=== PATIENT | male | born 1985 | race Caucasian/White ===

== ENCOUNTER 2017-04-21 21:29 | Inpatient (IN) | payer MEDICARE, OTHER ==
[2017-04-21 21:31] VITALS: BP 142/74; PULSE 99; RESP 20; TEMP 96.6; O2SAT 98
[2017-04-22] VITALS (9 sets, daily range): BP systolic 118–141; BP diastolic 58–82; PULSE 91–122; RESP 18–20; TEMP 97.6–101.2; O2SAT 92–99
[2017-04-22] MEDS ORDERED: PIPERACIL-TAZO 4.5 GM PREMIX 100 ML IV STA (00:01)
[2017-04-22] MEDS ORDERED: VANCOMYCIN INJ 1,000 MG in SODIUM CHLOR 0.9% 250 ML INJ 250 ML IV STA (00:01)
--- NOTE | 2017-04-22 00:10 | PD ---
HPI Chief Complaint: Skin Problem Time Seen by Provider: 23:55 Travel History International Travel<30 days: No Contact w/Intl Traveler<30days: No Traveled to known affect area: No History of Present Illness HPI 32 y/o male presents with his father with recurrence of an infection to his groin area that is been over the past couple of days. He states the year ago he had this and Dr. Wills did surgery to the area a year ago. He shows me paperwork that states perianal abscess and cellulitis of perineum. 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, TRAUMATIC BRAIN INJURY ) ?: Not Past Surgical History Other Surgery: Yes (incision and drainage perineum February 2016) Social History Alcohol Use: No Tobacco Use: No Substance Use: No Allergies-Medications (Allergen,Severity, Reaction): Coded Allergies: Iodinated Contrast- Oral and IV Dye (Verified Allergy, Unknown, 04/21/17) Reported Meds & Prescriptions Reported Meds & Active Scripts Active Reported Famotidine 40 Mg Tab 40 Mg PO BID Mupirocin Topical (Mupirocin) 2 % Oint 1 Applic TOPICAL BID Carbamazepine 100 Mg Chew 300 Mg CHEW BID Nystatin Topical (Nystatin) 100,000 unit/gm Cream 1 Applic TOPICAL BID Lactulose Liq (Lactulose) 10 Gm/15 Ml Soln 30 Ml PO HS Alendronate (Alendronate Sodium) 70 Mg Tab 70 Mg PO Q7D Vitamin D2 (Ergocalciferol) 2,000 Unit Tab 50,000 Units PO WEEKLY Senna-Tabs (Sennosides) 8.6 Mg Tab 25.8 Mg PO DAILY Baclofen 10 Mg Tab 10 Mg PO BID Olanzapine 10 Mg Tab 5 Mg PO BID Review of Systems ROS Limitations: Poor Historian (given traumatic brain injury) Physical Exam Exam Limitations: Poor Historian (traumatic brain injury) Narrative GENERAL: no apparent distress patient. SKIN: Warm and dry. HEAD: atraumatic. EYES: No injection or drainage. ENT: No nasal drainage noted. NECK: Supple, trachea midline. CARDIOVASCULAR: Regular rate and rhythm RESPIRATORY: no increased effort. No accessory muscle use. GASTROINTESTINAL: Abdomen soft, nondistended. GENITOURINARY: Testes descended bilaterally without evidence of rotation. to prior surgical site on right perianal area there is approximately 2 cm area of induration with surrounding erythema and warmth. NEUROLOGICAL: Contractures noted to arms, history traumatic brain injury limits Data Data Last Documented VS Vital Signs Date Time Temp Pulse Resp B/P (MAP) Pulse Ox O2 Delivery O2 Flow Rate FiO2 04/22/17 00:11 105 20 04/21/17 21:31 96.6 142/74 (96) 98 Room Air Orders Orders Sepsis Workup Initiated (04/22/17 ) Complete Blood Count With Diff (04/22/17 00:01) Comprehensive Metabolic Panel (04/22/17 00:01) Lactic Acid Sepsis Protocol (04/22/17 00:01) Magnesium (Mg) (04/22/17 00:01) Urinalysis - C+S If Indicated (04/22/17 00:01) Blood Culture (04/22/17 00:01) Ecg Monitoring (04/22/17 00:01) Iv Access Insert/Monitor (04/22/17 00:01) Oximetry (04/22/17 00:01) Ct Abd/Pel W/O Iv Contrast (04/22/17 00:01) Piperacil-Tazo 4.5 Gm Premix (Zosyn 4.5 (04/22/17 00:01) Vancomycin Inj (Vancomycin Inj) (04/22/17 00:01) Admit Order (Ed Use Only) (04/22/17 04:04) Labs Laboratory Tests Test 04/22/17 00:17 04/22/17 02:55 White Blood Count 18.0 TH/MM3 Red Blood Count 5.37 MIL/MM3 Hemoglobin 16.3 GM/DL Hematocrit 48.4 % Mean Corpuscular Volume 90.1 FL Mean Corpuscular Hemoglobin 30.3 PG Mean Corpuscular Hemoglobin Concent 33.7 % Red Cell Distribution Width 12.9 % Platelet Count 386 TH/MM3 Mean Platelet Volume 8.3 FL Neutrophils (%) (Auto) 73.5 % Lymphocytes (%) (Auto) 14.8 % Monocytes (%) (Auto) 9.7 % Eosinophils (%) (Auto) 1.3 % Basophils (%) (Auto) 0.7 % Neutrophils # (Auto) 13.2 TH/MM3 Lymphocytes # (Auto) 2.7 TH/MM3 Monocytes # (Auto) 1.7 TH/MM3 Eosinophils # (Auto) 0.2 TH/MM3 Basophils # (Auto) 0.1 TH/MM3 CBC Comment DIFF FINAL Differential Comment Blood Urea Nitrogen 10 MG/DL Creatinine 0.72 MG/DL Random Glucose 103 MG/DL Total Protein 8.4 GM/DL Albumin 3.7 GM/DL Calcium Level 9.2 MG/DL Magnesium Level 1.9 MG/DL Alkaline Phosphatase 169 U/L Aspartate Amino Transf (AST/SGOT) 18 U/L Alanine Aminotransferase (ALT/SGPT) 37 U/L Total Bilirubin 0.3 MG/DL Sodium Level 137 MEQ/L Potassium Level 4.3 MEQ/L Chloride Level 101 MEQ/L Carbon Dioxide Level 29.5 MEQ/L Anion Gap 7 MEQ/L Estimat Glomerular Filtration Rate 127 ML/MIN Lactic Acid Level 2.6 mmol/L 1.5 mmol/L [facility] Medical Decision Making Medical Screen Exam Complete: Yes Emergency Medical Condition: Yes Medical Record Reviewed: Yes (past history confirm) Interpretation(s) CBC & BMP Diagram 04/22/17 00:17 Total Protein 8.4 H, Albumin 3.7, Calcium Level 9.2, Magnesium Level 1.9, Alkaline Phosphatase 169 H, Aspartate Amino Transf (AST/SGOT) 18, Alanine Aminotransferase (ALT/SGPT) 37, Total Bilirubin 0.3 Last 24 hours Impressions Abdomen/Pelvis CT 04/22/17 0001 Signed Impressions: Service Date/Time: Saturday, April 22, 2017 00:39 - CONCLUSION: 1. Involving the perineum and left gluteal cleft is a 5 cm soft tissue density which could represent an abscess or inflammatory process. It extends inferiorly from the anus. 2. No other acute finding is identified in the abdomen or pelvis. Gino Jackson MD Differential Diagnosis Abscess, cellulitis, sepsis Narrative Course Will check blood work, CT and reevaluate CT shows abscess and perineum extending inferiorly, will discuss with surgery Father updated and agrees to plan Sepsis Criteria SIRS Criteria (2 or more): Temp > 100.9 or < 96.8, Heart rate over 90, WBC > 71279, < 4000 or > 10% bands Sepsis Criteria (SIRS+source): Infect source susp/known Severe Sepsis (+one): Lactate >2 Criteria Outcome: Meets severe sepsis criteria Physician Communication Physician Communication dr maldonado states to discuss with colorectal dr wagner states to place on his service in observation status Diagnosis Primary Impression: Perianal abscess Additional Impressions: Cellulitis of perineum Sepsis Qualified Codes: A41.9 - Sepsis, unspecified organism Admitting Information Admitting Physician Requests: Observation Yeimy Shaffer MD Apr 22, 2017 00:10
[2017-04-22] MEDS ORDERED: LACT10SO PO (00:38)
[2017-04-22] MEDS ORDERED: ERGO2000 PO (00:38)
[2017-04-22] MEDS ORDERED: CARB100C CHEW (00:38)
[2017-04-22] MEDS ORDERED: ALEN1TAB48 PO (00:38)
[2017-04-22] MEDS ORDERED: FAMO40TA PO (00:38)
[2017-04-22] MEDS ORDERED: NYST15T TOPICAL (00:38)
[2017-04-22] MEDS ORDERED: MUPI2OIN TOPICAL (00:38)
[2017-04-22] MEDS ORDERED: OLAN10TA PO (00:38)
[2017-04-22] MEDS ORDERED: SENN8.6T36 PO (00:38)
[2017-04-22] MEDS ORDERED: BACL10TA PO (00:38)
[2017-04-22 00:48] LABS: AUTOMATED NEUTROPHIL # 13.2 TH/MM3 (1.8-7.7); BASOPHIL # 0.1 TH/MM3 (0-0.2); BASOPHIL % 0.7 % (0.0-2.0); EOSINOPHIL # 0.2 TH/MM3 (0-0.4); EOSINOPHIL % 1.3 % (0.0-4.0); HEMATOCRIT 48.4 % (39.0-51.0); HEMO FLAGS DIFF FINAL; LYMPH % 14.8 % (9.0-44.0); LYMPHOCYTE # 2.7 TH/MM3 (1.0-4.8); MEAN CELL VOLUME 90.1 FL (80.0-100.0); MEAN CORPUSCULAR HEMOGLOBIN 30.3 PG (27.0-34.0); MEAN CORPUSCULAR HGB CONC 33.7 % (32.0-36.0); MONO % 9.7 % (0.0-8.0); NEUT % 73.5 % (16.0-70.0); PLATELET COUNT 386 TH/MM3 (150-450); RED BLOOD COUNT 5.37 MIL/MM3 (4.50-5.90); RED CELL DISTRIBUTION WIDTH 12.9 % (11.6-17.2)
[2017-04-22 01:06] LABS: ALT (GPT) 37 U/L (12-78); ANION GAP 7 MEQ/L (5-15); AST (GOT) 18 U/L (15-37); BICARBONATE 29.5 MEQ/L (21.0-32.0); BLOOD UREA NITROGEN 10 MG/DL (7-18); CHLORIDE 101 MEQ/L (98-107); GLOMERULAR FILTRATION RATE 127 ML/MIN (>89); MAGNESIUM 1.9 MG/DL (1.5-2.5); POTASSIUM 4.3 MEQ/L (3.5-5.1); SODIUM (NA) 137 MEQ/L (136-145)
[2017-04-22 01:07] LABS: ALKALINE PHOSPHATASE 169 U/L (45-117); TOTAL BILIRUBIN ADULT 0.3 MG/DL (0.2-1.0)
--- NOTE | 2017-04-22 01:07 | RADRPT ---
EXAM DATE/TIME: 04/22/2017 00:39 [place] COMPARISON: No previous studies available for comparison. INDICATIONS : Groin pain and inflammation. History of perianal abscess and cellulitis of perineum. ORAL CONTRAST: No oral contrast ingested. RADIATION DOSE: 12.15 CTDIvol (mGy) MEDICAL HISTORY : TIA. 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 ENCOUNTER: Initial ACUITY: 1 day PAIN SCALE: 7/10 LOCATION: buttock TECHNIQUE: Volumetric scanning of the abdomen and pelvis was performed. Using automated exposure control and ad justment of the mA and/or kV according to patient size, radiation dose was kept as low as reasonably achievable to obtain optimal diagnostic quality images. DICOM format image data is available electro nically for review and comparison. FINDINGS: Image quality is degraded secondary to patient arm position and respiratory motion. LOWER LUNGS: There is respiratory motion artifact. Bilateral gynecomastia is present. LIVER: Homogeneous density without lesion. There is no dilation of the biliary tree. No calcified gallston es. SPLEEN: Normal size without lesion. PANCREAS: Within normal limits. KIDNEYS: Normal in size and shape. There is no mass, stone, or hydronephrosis. ADRENAL GLANDS: Within normal limits. VASCULAR: There is no aortic aneurysm. BOWEL/MESENTERY: The stomach, small bowel, and colon demonstrate no acute abnormality. G-tube is present within the s tomach. There is no free intraperitoneal air. No free fluid is present. The patient to being terminat es in the right paracolic gutter in the right upper quadrant. At the perineum extending inferiorly fr om the anus is approximately 5 cm soft tissue density structure. It also abuts the left gluteal cleft . ABDOMINAL WALL: No acute abnormality. RETROPERITONEUM: There is no lymphadenopathy. BLADDER: No wall thickening or mass. REPRODUCTIVE: Within normal limits. INGUINAL: There is no lymphadenopathy or hernia. MUSCULOSKELETAL: There is levoscoliosis of the lumbar spine. CONCLUSION: 1. Involving the perineum and left gluteal cleft is a 5 cm soft tissue density which could represent an abscess or inflammatory process. It extends inferiorly from the anus. 2. No other acute finding is identified in the abdomen or pelvis. Gino Jackson MD on April 22, 2017 at 0:58 Board Certified Radiologist. This report was verified electronically.
[2017-04-22 02:34] LABS: LACTIC ACID GHOST NOT REPORTABLE
[2017-04-22] MEDS ORDERED: ACETAMINOPHEN 325 MG TAB PO PRN (08:00)
--- NOTE | 2017-04-22 10:03 | PD.HP.UP ---
H&P Update Note The Pre-Admit History and Physical Examination regarding the above named patient was reviewed (including, but not limited to, vital signs, heart, lungs, co-morbid conditions), and upon re-examination it is noted that: the patient's condition has not significantly changed since the last examination. Malcolm Galeano MD Apr 22, 2017 10:03
[2017-04-22] MEDS ORDERED: PILL SPLITTER OTHER PRN (10:30)
[2017-04-22] MEDS: SODIUM CHLOR 0.9% 1000 ML INJ 1,000 ML IV SCH (10:45)
[2017-04-22] MEDS ORDERED: NEOSTIGMINE 3 MG/3 ML SYR IV ONE (12:00)
[2017-04-22] MEDS ORDERED: ePHEDrine/NS 25 MG/5 ML SYR IV ONE (12:00)
[2017-04-22] MEDS ORDERED: PHENYLEPH/NS 1000 MCG/10 ML SYR IV ONE (12:00)
[2017-04-22] MEDS ORDERED: ONDANSETRON HCL 4 MG/2 ML VIAL IV PUSH ONE (12:00)
[2017-04-22] MEDS ORDERED: VECURONIUM BROMIDE 20 MG VIAL IV ONE (12:00)
[2017-04-22] MEDS ORDERED: EPINEPHrine HCL (1:1000) 1 MG/ML VIAL IV ONE (12:00)
[2017-04-22] MEDS ORDERED: ceFAZolin INJ 1,000 MG VIAL IV ONE (12:00)
[2017-04-22] MEDS ORDERED: DEXAMETHASONE SOD PHOS 4 MG/ML VIAL IV ONE (12:00)
[2017-04-22] MEDS ORDERED: LABETALOL HCL 100 MG/20 ML VIAL IV ONE (12:00)
[2017-04-22] MEDS ORDERED: PROPOFOL 200 MG/20 ML AMP IV ONE (12:00)
[2017-04-22] MEDS ORDERED: GLYCOPYRROLATE 1 MG/5 ML SYRINGE IV PUSH ONE (12:00)
[2017-04-22] MEDS ORDERED: LIDOCAINE HCL 1% PF 5 ML SYRINGE OTHER ONE (12:00)
[2017-04-22] MEDS ORDERED: SODIUM CHLORIDE 0.9% 20 ML VIAL IV ONE (12:00)
[2017-04-22] MEDS ORDERED: ROCURONIUM INJ 50 MG/5 ML SYRINGE IV PUSH ONE (12:00)
[2017-04-22] MEDS ORDERED: MIDAZOLAM HCL 2 MG/2 ML VIAL IV ONE (12:00)
[2017-04-22] MEDS ORDERED: SODIUM CHLORID 0.9% 500 ML IV PRN (14:15)
[2017-04-22] MEDS ORDERED: METOPROLOL TARTRATE 25 MG TAB PO PRN (14:15)
[2017-04-22] MEDS ORDERED: LACTATED RINGER'S 1000 ML IV PRN (14:15)
[2017-04-22] MEDS ORDERED: SILVER SULFADIAZINE/LIDOCAINE CREAM 60 GM JAR ONE (16:15)
[2017-04-22] MEDS ORDERED: SUGAMMADEX SODIUM 200 MG/2 ML VIAL IV PUSH ONE ×2 (18:16)
--- NOTE | 2017-04-22 18:28 | HHI.FF ---
Face to Face Verification Diagnosis: (1) Perianal abscess Physical Therapy Order: Evaluate and Treat, Improve ambulation, Strength and gait training Home Health Nursing Order: Medical education Signs/symptoms of disease process Medication education-adverse effect Wound care and dressing changes I have seen patient Richi CortezJr nehemias on 04/22/17. My clinical findings support the need for the requested home health care services because: Ltd mobility - disease progression Deconditioned w/ increased weakness Limited ability to care for self Need for psychosocial assistance High risk of falls Infection w/ risk of complications I certify that my clinical findings support that this patient is homebound because: Post-op weakness Unsafe to leave home unassisted Malcolm Galeano MD Apr 22, 2017 18:28
[2017-04-22] MEDS ORDERED: ACETAMINOPHEN 1000 MG/100 ML 100 ML IV PRN (18:30)
[2017-04-22] MEDS ORDERED: oxyCODONE/ACETAMINOPHEN 5 MG/325 MG TAB PO PRN (18:30)
[2017-04-22] MEDS ORDERED: NALOXONE HCL 0.4 MG/ML AMP ONE (18:31)
[2017-04-22] MEDS ORDERED: DO NOT ADM ANY ANTICOAGULANT DRUGS PRN (18:44)
[2017-04-22] MEDS ORDERED: *MEPERIDINE 25 MG INJ VIAL PERIprocedural Use ONLY ONE (18:45)
[2017-04-22] MEDS ORDERED: *morphine SULFATE 8 MG/ML PERIprocedure ONLY ONE (19:00)
[2017-04-22] MEDS: OLANZapine 5 MG TAB PO SCH (21:36)
[2017-04-22] MEDS: BACLOFEN 10 MG TAB PO SCH (21:37)
[2017-04-23] MEDS: SODIUM CHLOR 0.9% 1000 ML INJ 1,000 ML IV SCH ×2 (02:55→16:37)
[2017-04-23 03:04] VITALS: BP 105/56; PULSE 93; RESP 18; TEMP 98.8; O2SAT 94
[2017-04-23 08:58] VITALS: BP 105/53; PULSE 82; RESP 20; TEMP 98.2; O2SAT 93
[2017-04-23] MEDS: BACLOFEN 10 MG TAB PO SCH ×2 (09:29→22:28)
[2017-04-23] MEDS: OLANZapine 5 MG TAB PO SCH ×2 (09:29→22:28)
[2017-04-23 13:13] VITALS: BP 118/59; PULSE 103; RESP 24; TEMP 98.5; O2SAT 93
--- NOTE | 2017-04-23 14:17 | HHI.PR ---
Subjective Remarks POD#1 s/p I & D perineal abscess Seems comfortable Objective Vital Signs Date Time Temp Pulse Resp B/P (MAP) Pulse Ox O2 Delivery O2 Flow Rate FiO2 04/23/17 13:13 98.5 103 24 118/59 (78) 93 04/23/17 08:58 98.2 82 20 105/53 (70) 93 04/23/17 03:04 98.8 93 18 105/56 (72) 94 04/22/17 23:44 97.9 98 18 140/70 (93) 93 04/22/17 21:29 98.9 110 18 141/78 (99) 92 04/22/17 19:30 98.2 88 16 150/69 (96) 97 Nasal Cannula 3 04/22/17 19:15 92 16 159/66 (97) 97 Nasal Cannula 3 04/22/17 19:05 16 04/22/17 19:00 89 16 162/70 (100) 96 Nasal Cannula 3 04/22/17 18:45 99 16 166/76 (106) 98 Nasal Cannula 4 04/22/17 18:42 99.2 117 18 165/90 (115) 95 Nasal Cannula 4 04/22/17 15:43 97.6 98 18 133/82 (99) 95 I/O 04/22/17 04/22/17 04/22/17 04/23/17 04/23/17 04/23/17 07:00 15:00 23:00 07:00 15:00 23:00 Intake Total 350 ml 400 ml Output Total 10 ml Balance 350 ml 390 ml Intake IV Total 350 ml Other 400 ml Output Estimated Blood Loss 10 ml # Voids 0 Result Diagram: 04/22/17 0017 04/22/17 0017 Objective Remarks Wound clean, some fresh blood Assessment and Plan Assessment and Plan Can be discharged as soon as Visiting Nurse can be arranged for dressing changes Laura Pérez MD Apr 23, 2017 14:17
[2017-04-23 16:14] VITALS: BP 105/75; PULSE 86; RESP 18; TEMP 96.3; O2SAT 97
[2017-04-23 23:40] VITALS: BP 118/63; PULSE 82; RESP 22; TEMP 97.7; O2SAT 95
[2017-04-24 01:44] VITALS: BP 114/61; PULSE 80; RESP 20; TEMP 97.8; O2SAT 92
[2017-04-24 05:46] VITALS: BP 121/71; PULSE 97; RESP 20; TEMP 98.1; O2SAT 95
[2017-04-24 08:00] VITALS: BP 116/66; PULSE 102; RESP 20; TEMP 99.5; O2SAT 93
[2017-04-24] MEDS: OLANZapine 5 MG TAB PO SCH ×2 (08:12→21:40)
[2017-04-24] MEDS: BACLOFEN 10 MG TAB PO SCH ×2 (08:12→21:40)
--- NOTE | 2017-04-24 11:27 | HHI.PR ---
Subjective Remarks POD#2 s/p I & D perineal abscess Comfortably sleeping Objective Vital Signs Date Time Temp Pulse Resp B/P (MAP) Pulse Ox O2 Delivery O2 Flow Rate FiO2 04/24/17 08:00 99.5 102 20 116/66 (83) 93 04/24/17 05:46 98.1 97 20 121/71 (88) 95 04/24/17 01:44 97.8 80 20 114/61 (78) 92 04/23/17 23:40 97.7 82 22 118/63 (81) 95 04/23/17 16:14 96.3 86 18 105/75 (85) 97 04/23/17 13:13 98.5 103 24 118/59 (78) 93 I/O 04/23/17 04/23/17 04/23/17 04/24/17 04/24/17 04/24/17 07:00 15:00 23:00 07:00 15:00 23:00 Intake Total 721 ml Output Total 1450 ml Balance -729 ml Intake Oral 0 ml IV Total 721 ml Output Urine Total 1450 ml Result Diagram: 04/22/17 0017 04/22/17 0017 Objective Remarks Dressing change soon Assessment and Plan Assessment and Plan Can be discharged as soon as Visiting Nurse can be arranged for dressing changes Laura Pérez MD Apr 24, 2017 11:26
[2017-04-24] MEDS: SODIUM CHLOR 0.9% 1000 ML INJ 1,000 ML IV SCH (11:53)
[2017-04-24 12:00] VITALS: BP 108/68; PULSE 104; RESP 20; TEMP 98.9; O2SAT 94
[2017-04-24 16:00] VITALS: BP 132/77; PULSE 88; RESP 18; TEMP 97.8; O2SAT 96
--- NOTE | 2017-04-24 16:35 | MP ---
cc: MINH SILVA M.D. DATE OF SURGERY ____ April 2017. PREOPERATIVE DIAGNOSIS Recurrent perirectal / perineal abscess. PROCEDURE Exam under anesthesia with extensive debridement, irrigation and drainage of perineal abscess. POSTOPERATIVE DIAGNOSIS Perineal abscess. SURGEON Dr. Silva. PROCEDURE After adequate general anesthesia, the patient was placed in the left lateral decubitus position. His buttocks taped apart, prepped with Betadine solution and draped in usual sterile fashion. Anal canal was gently dilated and half-shepherd retractor inserted. Examination showed quite a bit of stool in the rectum but normal looking mucosa. The dentate line was unremarkable with no sign of any fistulous connections. Examination revealed a very indurated cellulitic area along the perineal body was scarring from previous drainage procedure. This was opened and large cavity containing purulent fluid was encountered. The skin was opened along the extent of the cavity and digitally explored. It did seem to extend up along the perineal body toward the scrotal area and this cavity was unroofed and irrigated clear. No tissue was seen but quite a bit of a friable granulation tissue. Granulation tissue was all removed and loculations broken up. No connection to the rectum was clearly demonstrated. After irrigation and debridement the cavity was found to be quite clean and hemostasis achieved with electrocautery. Cavity was packed loosely with a large Kerlix dressing, ABD pad externally. The patient tolerated the procedure quite well and was brought to recovery room in stable condition. MD DESEAN Colon/RAVEN /3:55 PM /4:21 PM
--- NOTE | 2017-04-24 16:43 | MH ---
cc: MINH SILVA M.D. DATE OF ADMISSION: 04/23/2017 REASON FOR ADMISSION: Recurrent perineal abscess. HISTORY OF PRESENT ILLNESS: Mr. Aranda is a 32-year-old male who has been treated before at [facility] for infection for an abscess around the rectum / perineal area about a year ago. The patient had been living under the care of his father during the year and only recently noted increasing pain and tenderness around the area along the perineal body. He has noted a fever. He also has been noticing some increasing cellulitis over the skin. The patient's bowel movements have been constipated but pretty normal for the patient. No rectal bleeding has been demonstrated. The patient was sent in for evaluation and possible additional drainage procedure. 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 PAST SURGICAL HISTORY: Incision and drainage of perineal / perirectal abscesses. MEDICATIONS: See the admitting list. ALLERGIES: IV CONTRAST. SOCIAL HISTORY: The patient does not smoke and father says he does not drink any alcohol. FAMILY HISTORY: No family history of colon or rectal cancer. PHYSICAL EXAMINATION: GENERAL: A disabled heavy-set male in no acute distress. HEAD, EYES, EARS, NOSE, THROAT: Remarkable for pink dry membranes, nonicteric sclera. NECK: Neck was quite stiff without adenopathy. CHEST: Relatively shallow in both lung prajapati, symmetrically expanding. HEART: Regular rhythm. ABDOMEN: Abdomen was doughy and soft not distended. Normal bowel sounds. No rebound or guarding or any masses noted. RECTAL: Anal inspection revealed benign canal with some minor hemorrhoids. The perineal body is very swollen and asymmetric with tenderness and some mild cellulitis. No drainage sites noted. Quite indurated. EXTERNAL GENITALIA: Scrotum appears pretty unremarkable. EXTREMITIES: Show no cyanosis or clubbing and maybe 1 to 2+ pedal edema. LABS: Admitting labs were reviewed showing a white count of 18.0, hemoglobin of 16.3. Electrolytes remarkable for BUN of 10, creatinine of 0.72. Liver functions were all normal. IMAGING STUDIES: CT scan was reviewed confirming the very large abscess seen clinically. IMPRESSION: A 32-year-old disabled male with recurrent perineal abscess. It does not appear to have a connection to the rectum but with recurrence, may be suspicious for a fistula. Reviewed at length with the patient's father with his disabilities and suggested that we bring him to the operating room for anesthesia and examination under anesthesia with drainage and debridement of the abscess. If a fistula is demonstrated and fistulotomy or seton placement might be advisable. After assessing the extent and origin of the abscess, intraoperative surgery will be correlated clinically. MD DESEAN Colon/POPPY /4:00 PM /4:16 PM
[2017-04-24 20:45] VITALS: BP 128/93; PULSE 94; RESP 20; TEMP 97.2; O2SAT 96
[2017-04-25 01:33] VITALS: BP 131/69; PULSE 84; RESP 20; TEMP 97.4; O2SAT 96
[2017-04-25] MEDS: SODIUM CHLOR 0.9% 1000 ML INJ 1,000 ML IV SCH (06:03)
[2017-04-25 08:00] VITALS: BP 123/71; PULSE 91; RESP 18; TEMP 97.3; O2SAT 96
[2017-04-25] MEDS: OLANZapine 5 MG TAB PO SCH (09:45)
[2017-04-25] MEDS: BACLOFEN 10 MG TAB PO SCH (09:45)
[2017-04-25 12:00] VITALS: BP 120/75; PULSE 87; RESP 16; TEMP 96.3; O2SAT 96
--- NOTE | 2017-04-25 15:08 | PQ ---
Physician Query Response Document PATIENT: CHINO GARCÍA : 1985 ADMIT DATE: 04/23/2017 5:59 PM DISCH DATE: RESPONDING PROVIDER #: McKinstry Reklaimitter QUERY TEXT: Rule Out Sepsis Clarification Rule out Sepsis is documented in the Medical Record. Please clarify whether: -- Patient has sepsis - Please document confirmed, suspected or probable causative organism - Please document confirmed, suspected or probable localized infection - Please clarify if sepsis is related to a device - Please clarify if sepsis was present on admission -- Sepsis was ruled out (include corresponding diagnosis for patient?s clinical picture and treatment ) -- Patient had sepsis which is resolved -- Other, please specify The patient's Clinical Indicators include: Lactate >2 2.6 WBC 18.0 TEMP: 101.2 PULSE: 122 RECURRENT PERIRECTAL/PERINEAL ABSCESS Apr 22, 2017 00:10 ER DOCUMENTATION A41.9 - Sepsis, unspecified organism TREATMENT INITIATED BLOOD CULTURES FOLLOWED BY IV: ZOSYN IV AND VANCOMYCIN IN ER Query created by: Yamila Henderson on 04/25/2017 2:28 PM RESPONSE TEXT: Pt had wilson-rectal infection, no sepsis Electronically signed by: Malcolm Galeano MD 04/25/2017 3:04 PM
--- NOTE | 2017-04-25 15:51 | HHI.PR ---
Subjective Remarks C/R Surg POD afebrile, VSS princess PO less wound disch Objective - Vital Signs Date Time Temp Pulse Resp B/P (MAP) Pulse Ox O2 Delivery O2 Flow Rate FiO2 04/25/17 12:00 96.3 87 16 120/75 (90) 96 04/22/17 19:30 Nasal Cannula 3 Result Diagram: 04/22/17 0017 04/22/1716 Objective Remarks PE alert cpmfortable Wounds cleaning up A/P Assessment and Plan Imp: cont wound irrigations, OOB per father PO nutrition rto 1 - 2 weeks Malcolm Galeano MD Apr 25, 2017 15:51
== END 2017-04-25 16:08 | disposition home health service (06) | DRG 581 ==
LOC: NEPE 21:29 → NEDA 04-22 04:05 → NEPFCDU 04-22 07:49 → OBSVTOIN 04-23 17:59 → N07A 04-23 18:42
PROVIDERS: ADMIT Colon & Rectal Surgery; ATTEND Colon & Rectal Surgery
PROC: 0J9B0ZZ Drainage of Perineum Subcutaneous Tissue and Fascia, Open Approach (ICD-10-PCS; principal; 2017-04-24)
PROC: 0JDB0ZZ Extraction of Perineum Subcutaneous Tissue and Fascia, Open Approach (ICD-10-PCS; 2017-04-24)
DX: L02.215 Cutaneous abscess of perineum (principal); K59.00 Constipation, unspecified; L03.315 Cellulitis of perineum; Z98.2 Presence of cerebrospinal fluid drainage device
CPT/HCPCS: 74176; 76937; 80053; 83605; 83735; 85025; 87040; 96361; 96365; G0378; J0131; J0171; J0690; J1100; J2175; J2250; J2270; J2310; J2370; J2405; J2543; J2710; J3010; J3370; J7030; J7050

== ENCOUNTER 2018-04-29 19:21 | Observation (INO) ==
[2018-04-29] MEDS ORDERED: Piperacil/Tazo 4.5 GM Premix 4.5 GM/100 ML BAG IV.SIG ONE (20:57)
[2018-04-29] MEDS ORDERED: Vancomycin Inj 1,000 MG in Sodium Chlor 0.9% Inj 250 ML IV.SIG ONE (20:57)
[2018-04-29] MEDS ORDERED: Sod Chloride 0.9% Inj 1,000 ML IV.SIG SCH ×2 (21:00→22:45)
--- NOTE | 2018-04-29 21:35 | ED ---
HPI General Chief complaint: Skin/Abscess/Foreign Body Stated complaint: right leg boil complaint Time Seen by Provider: 04/29/18 20:46 Source: family (Father) Mode of arrival: wheelchair Limitations: other (History of traumatic brain injury, aphasic) History of Present Illness HPI narrative: 33-year-old male with history of traumatic brain injury at the age of 13, SUPERINTENDENT HORTICULTURE shunt, recurrent perineal abscesses, here with his father for evaluation of possible perineal abscess. Patient last had an abscess incised and drained by colorectal surgeon Dr. Galeano here almost exactly 1 year ago. The patient was followed by him for several months afterwards, and continued with wound care at the wound care clinic associated with [facility]. Over the last 2 days the father is noted increasing swelling to the left perineal area as well as apparent discomfort/tenderness. The patient is unable to provide any history, however the father states that he is at his baseline mental status and has been acting and eating appropriately. He has not noticed a fever. No vomiting. Related Data Allergies Allergy/AdvReac Type Severity Reaction Status Date / Time Iodinated Contrast- Oral and Allergy Severe Shortness Verified 04/22/17 15:41 IV Dye of Breath AND ITCHING Review of Systems ROS: all other systems reviewed are negative PMFSH Surgical History Surgical History History of ventriculoperitoneal shunting (Acute) Social History Social History Substance History: No History of Abuse Smoking Status: Never smoker How Often Do You Have a Drink Containing Alcohol: Never Recent Travel in [facility] within the Last 8 Weeks: No Recent Out of Country Travel within the Last 8 Weeks: No Immunization History Tetanus Immunization: Unsure Exam Narrative Exam Narrative: GENERAL: Awake, alert, no apparent distress. SKIN: Focused skin assessment warm/dry. HEAD: Macrocephalus. SUPERINTENDENT HORTICULTURE shunt palpated subcutaneously over the right parietal region with depressible port. EYES: Pupils equal and round. No scleral icterus. No injection or drainage. ENT: No nasal bleeding or discharge. Mucous membranes pink and dry. NECK: Trachea midline. No JVD. No nuchal rigidity. CARDIOVASCULAR: Tachycardia, rate 130, regular. RESPIRATORY: No accessory muscle use. Clear to auscultation. Breath sounds equal bilaterally. GASTROINTESTINAL: Abdomen soft, non-tender, nondistended. PEG tube in left upper quadrant with site clean, dry, intact. : Normal-appearing penis and scrotum. Left perineum/perirectal region with a large area of induration with overlying warmth and erythema with several well- healed scars from previous incision and drainages. No crepitus. No necrosis. MUSCULOSKELETAL: Contractures of bilateral upper and lower extremities. NEUROLOGICAL: Awake and alert. Course Initial Documented Vital Signs Temperature 99.2 F 04/29/18 19:50 Pulse Rate 129 H 04/29/18 19:50 Respiratory Rate 20 04/29/18 19:50 Blood Pressure 145/91 H 04/29/18 19:50 Pulse Oximetry 97 04/29/18 19:50 Last Documented Vital Signs Temperature 99.2 F 04/29/18 19:50 Pulse Rate 129 H 04/29/18 19:50 Respiratory Rate 20 04/29/18 19:50 Blood Pressure 145/91 H 04/29/18 19:50 Pulse Oximetry 97 04/29/18 19:50 Medical Decision Making MDM Narrative Medical decision making narrative: 9:45 PM: I discussed the case with Dr. Villalobos who is covering for colorectal surgeon Dr. Galeano. He will present to the emergency department to evaluate the patient for possible I&D at the bedside. 10:15 PM: Dr. Villalobos is at the bedside. He will perform incision and drainage of the patient's perineal abscess at the bedside. This procedure was concluded at around 10:40 PM, and a significant amount of purulence was expressed. The wound was packed. See his procedure note. CBC is remarkable for leukocytosis of 19,000. Lactic acid is 2.8. Patient was written for IV vancomycin and IV Zosyn. He was also written for 2 L normal saline IV and will be admitted for further treatment and evaluation of sepsis, perineal abscess. Case discussed with hospitalist Dr. Jasso who will admit the patient to the hospitalist service. Medical Screen Exam Complete: Yes Emergency Medical Condition: Yes Differential Diagnosis Differential Diagnosis: Perineal abscess, sepsis, Fourniere's gangrene less likely Lab Data Result diagrams: 04/29/18 21:30 04/29/18 21:30 Lab Results 04/29/18 04/29/18 04/29/18 Range/Units 19:30 21:30 21:30 WBC 19.0 H (4.0-11.0) th/mm3 RBC 5.30 (4.50-5.90) mil/mm3 Hgb 17.2 H (13.0-17.0) gm/dL Hct 47.8 (39.0-51.0) % MCV 90.2 (80.0-100.0) fL MCH 32.5 (27.0-34.0) pg MCHC 36.0 (32.0-36.0) % RDW 13.0 (11.6-17.2) % Plt Count 329 (150-450) th/mm3 MPV 8.5 (7.0-11.0) fL Prelim Diff (Auto) Slide review pending Neut % (Auto) 72.5 H (16.0-70.0) % Lymph % (Auto) 14.6 (9.0-44.0) % [place] % (Auto) 10.5 H (0.0-8.0) % Eos % (Auto) 2.0 (0.0-4.0) % Baso % (Auto) 0.4 (0.0-2.0) % Neut # (Auto) 13.8 H (1.8-7.7) th/mm3 Lymph # (Auto) 2.8 (1.0-4.8) th/mm3 [place] # (Auto) 2.0 H (0.0-0.9) th/mm3 Eos # (Auto) 0.4 (0.0-0.4) th/mm3 Baso # (Auto) 0.1 (0.0-0.2) th/mm3 WBC Differential . Diff Scan Auto diff confirmed Differential Comment . PT 10.0 (9.8-11.6) sec INR 1.0 Ratio APTT 28.7 (23.4-31.7) sec Sodium (136-145) meq/L Potassium (3.5-5.1) meq/L Chloride (98-107) meq/L Carbon Dioxide (21.0-32.0) meq/L Anion Gap (5-15) meq/L BUN (7-18) mg/dL Creatinine (0.60-1.30) mg/dL Estimated GFR (>89) mL/min Random Glucose (74-106) mg/dL Lactic Acid (0.4-2.0) mmol/L Calcium (8.5-10.1) mg/dL Magnesium (1.5-2.5) mg/dL Total Bilirubin (0.2-1.0) mg/dL AST (15-37) U/L ALT (12-78) U/L Alkaline Phosphatase (45-117) U/L Total Protein (6.4-8.2) g/dL Albumin (3.4-5.0) g/dL 04/29/18 04/29/18 Range/Units 21:30 21:30 WBC (4.0-11.0) th/mm3 RBC (4.50-5.90) mil/mm3 Hgb (13.0-17.0) gm/dL Hct (39.0-51.0) % MCV (80.0-100.0) fL MCH (27.0-34.0) pg MCHC (32.0-36.0) % RDW (11.6-17.2) % Plt Count (150-450) th/mm3 MPV (7.0-11.0) fL Prelim Diff (Auto) Neut % (Auto) (16.0-70.0) % Lymph % (Auto) (9.0-44.0) % [place] % (Auto) (0.0-8.0) % Eos % (Auto) (0.0-4.0) % Baso % (Auto) (0.0-2.0) % Neut # (Auto) (1.8-7.7) th/mm3 Lymph # (Auto) (1.0-4.8) th/mm3 [place] # (Auto) (0.0-0.9) th/mm3 Eos # (Auto) (0.0-0.4) th/mm3 Baso # (Auto) (0.0-0.2) th/mm3 WBC Differential Diff Scan Differential Comment PT (9.8-11.6) sec INR Ratio APTT (23.4-31.7) sec Sodium 141 (136-145) meq/L Potassium 4.6 (3.5-5.1) meq/L Chloride 107 (98-107) meq/L Carbon Dioxide 26.6 (21.0-32.0) meq/L Anion Gap 7 (5-15) meq/L BUN 14 (7-18) mg/dL Creatinine 0.87 (0.60-1.30) mg/dL Estimated GFR Greater than 89 (>89) mL/min Random Glucose 93 (74-106) mg/dL Lactic Acid 2.8 H (0.4-2.0) mmol/L Calcium 9.3 (8.5-10.1) mg/dL Magnesium 2.2 (1.5-2.5) mg/dL Total Bilirubin 0.3 (0.2-1.0) mg/dL AST 40 H (15-37) U/L ALT 40 (12-78) U/L Alkaline Phosphatase 180 H (45-117) U/L Total Protein 8.9 H (6.4-8.2) g/dL Albumin 3.8 (3.4-5.0) g/dL Imaging Data Radiologist's impression: Abdomen/Pelvis CT 04/29/18 20:55 CONCLUSION: 1. Induration in the fat at the inferior medial left gluteal/posterior medial upper thigh region without an abscess. 2. G-tube and presumed SUPERINTENDENT HORTICULTURE shunt. 3. 1 to 2 mm nonobstructing right renal stone. 4. Elevation of the right hemidiaphragm Chest X-Ray 04/29/18 20:55 CONCLUSION: Elevation of the right hemidiaphragm. Discharge Plan Discharge Disposition Patient Disposition: ED Admit(ED Internal Use Only) Discharge Condition Condition: Stable Discharge Details Diagnosis: Sepsis, Abscess of perineum Physicians Team ED Provider: Steve Ly Status ED Status: With Doctor
[2018-04-29 21:50] LABS: Baso # (Auto) 0.1 th/mm3 (0.0-0.2); Baso % (Auto) 0.4 % (0.0-2.0); Eos # (Auto) 0.4 th/mm3 (0.0-0.4); Hematocrit 47.8 % (39.0-51.0); Hemoglobin 17.2 gm/dL (13.0-17.0); Lymph # (Auto) 2.8 th/mm3 (1.0-4.8); Lymph % (Auto) 14.6 % (9.0-44.0); Mean Corpuscular Hemoglobin 32.5 pg (27.0-34.0); Mean Corpuscular Volume 90.2 fL (80.0-100.0); Mean Platelet Volume 8.5 fL (7.0-11.0); Mono % (Auto) 10.5 % (0.0-8.0); Neut # (Auto) 13.8 th/mm3 (1.8-7.7); Neut % (Auto) 72.5 % (16.0-70.0); Platelet Count 329 th/mm3 (150-450)
[2018-04-29 22:10] LABS: Activated Partial Thrombo Time 28.7 sec (23.4-31.7)
[2018-04-29] MEDS ORDERED: Lidocaine PF 1% Inj 30 ML Vial ONE (22:11)
--- NOTE | 2018-04-29 22:21 | CT ---
EXAM DATE: 04/29/2018 10:14 PM EST AGE/SEX: 33 years / Male INDICATIONS: Possible recent left perineal abscess. CLINICAL DATA: This is the patient's initial encounter. Patient reports that signs and symptoms have been present for 1 day and indicates a pain score of 10/10. MEDICAL/SURGICAL HISTORY: . Traumatic brain injury. . HOTSHOT SUPERINTENDENT shunt Feeding tube RADIATION DOSE: 20.70 CTDI (mGy) [place] [facility] [place] 04/22/2017. . TECHNIQUE: Multiple contiguous axial images were obtained through the abdomen. Images were obtained using multiple row detector helical technique. Using automated exposure control and adjustment of the mA and/or kV according to patient size, radiation dose was kept as low as reasonably achievable to o btain optimal diagnostic quality images. DICOM format image data is available electronically for rev iew and comparison. FINDINGS: Lower Lungs: There is elevation of the right hemidiaphragm. There is some increased density at the ba ses being worse on the right likely related to atelectasis. Liver: The liver has a homogeneous density without space-occupying lesion. There is no dilation of th e biliary tree. Spleen: Homogeneous density without enlargement. Pancreas: Unremarkable without mass or calcification. Kidneys: Normal in size and shape. No evidence of mass or hydronephrosis. There is a tiny 1 to 2 mm nonobstructing right renal stone seen. Adrenal Glands: Unremarkable. Aorta: The aorta and proximal iliac vessels are grossly unremarkable without aneurysmal dilation. Bowel/Mesentery: There is a G-tube in place. No dilated or thickened bowel is seen. Tubing is seen o ashlee the right chest and right abdomen entering the peritoneal cavity presumably related to a HOTSHOT SUPERINTENDENT shunt . Abdominal Wall: Intact. Retroperitoneum: No evidence of adenopathy in the retrocrural, para-aortic, or deep pelvic regions. Bladder: Contours are smooth. Reproductive Organs: No abnormal masses or calcifications seen. Inguinal: The inguinal region is unremarkable without evidence of adenopathy. Bony Structures: There is a dextrocurvature of the thoracic spine and a levocurvature of the thoraco lumbar region. Other: There is induration in the subcutaneous fat at the inferior medial left gluteal/posterior upp er thigh region. An abscess is not seen. CONCLUSION: 1. Induration in the fat at the inferior medial left gluteal/posterior medial upper thigh region wit hout an abscess. 2. G-tube and presumed HOTSHOT SUPERINTENDENT shunt. 3. 1 to 2 mm nonobstructing right renal stone. 4. Elevation of the right hemidiaphragm Electronically signed by: Gino Jenkins MD 04/29/2018 10:20 PM EST
--- NOTE | 2018-04-29 22:22 | XR ---
EXAM DATE: 04/29/2018 10:20 PM EST AGE/SEX: 33 years / Male INDICATIONS: Fever. Cough. CLINICAL DATA: This is the patient's initial encounter. Patient reports that signs and symptoms have been present for 3 days and indicates a pain score of 0/10. MEDICAL/SURGICAL HISTORY: . TIA. . 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 COMPARISON: No prior exams available for comparison. FINDINGS: There is elevation of the right hemidiaphragm. The heart size is normal. The lungs appear grossly tim ar. No effusion is seen. Shunt tubing is seen over the medial right chest. There is a dextrocurvature of the thoracic spine and a levocurvature of the thoracolumbar region. CONCLUSION: Elevation of the right hemidiaphragm. Electronically signed by: Gino Jenkins MD 04/29/2018 10:21 PM EST
[2018-04-29 22:23] LABS: Alanine Aminotransferase 40 U/L (12-78)
[2018-04-29 22:25] LABS: Albumin 3.8 g/dL (3.4-5.0); Alkaline Phosphatase 180 U/L (45-117); Anion Gap 7 meq/L (5-15); Aspartate Aminotransferase 40 U/L (15-37); Blood Urea Nitrogen 14 mg/dL (7-18); Calcium 9.3 mg/dL (8.5-10.1); Carbon Dioxide 26.6 meq/L (21.0-32.0); Chloride 107 meq/L (98-107); Glomerular Filtration Rate Greater Than 89 mL/min (>89); Glucose,Random 93 mg/dL (74-106); Magnesium 2.2 mg/dL (1.5-2.5); Sodium 141 meq/L (136-145); Total Protein 8.9 g/dL (6.4-8.2)
[2018-04-29 22:45] LABS: Potassium 4.6 meq/L (3.5-5.1)
[2018-04-29] MEDS ORDERED: Vancomycin Consult Pharmacy OTHER PRN (22:59)
[2018-04-29] MEDS ORDERED: Dextrose 5%/Lactated Ringer's 1,000 ML IV.CONT SCH (23:00)
[2018-04-29] MEDS ORDERED: Bisacodyl 10 MG Supp RECTAL PRN (23:01)
[2018-04-29] MEDS ORDERED: Acetaminophen 325 MG Tablet PO PRN (23:01)
[2018-04-29] MEDS ORDERED: Morphine Sulfate Inj 2 MG/ML Vial IV.PUSH PRN (23:02)
--- NOTE | 2018-04-29 23:29 | MB ---
cc: Gino Villalobos MD, John T MD DATE: 04/29/2018 CHIEF COMPLAINT: Left anterior ischiorectal abscess. HISTORY OF PRESENT ILLNESS: This patient has traumatic brain injury for some years. The patient has developed previous perirectal ischiorectal abscesses, the last one drained by Dr. Galeano, my partner just about a year ago. It was drained under anesthesia with full drainage. No fistula tract could be found at the time of the acute drainage. He was followed along until August of this year and then left the area apparently. He came back with some drainage from this area and came to the emergency department. They referred him to the Wound Care and he has been followed in wound care since then. Over the last couple of days, he developed extreme amount of swelling and he presented to the emergency room with his father with severe pain. I was called by the emergency room physician, Dr. Ly, who sent him for a CT scan showing a lot of stranding and perianal inflammation anteriorly and laterally at the area of the swelling. Past medical history, family history, social history and review of systems is negative except for above. PHYSICAL EXAMINATION: GENERAL: Well-developed, well-nourished patient with obvious chronic brain injury, however, conversant with his father in [place]. SKIN: Warm and dry. ABDOMEN: Soft, nontender. No masses. RECTAL EXAM: Inspection reveals a large edematous left anterior perirectal abscess. He has a previous long scar present there from the previous drainage. His father says that he has had 2 previous drainages. RECTAL: Exam was not done. EXTREMITIES: Range of motion somewhat limited due to his brain injury. IMPRESSION: Large left anterior ischiorectal abscess. PLAN: I went ahead and anesthetized it with approximately 30 mL of 1% Xylocaine and incised and drained this area. At first, it was a large amount of perianal edema in the skin and then deeper foul smelling purulent drainage was encountered. There was no evidence of any necrosis whatsoever. The tissue was pink and quite alive. There was no evidence of any Abigail's gangrene. There was no air in the tissues on CT scan or on palpation. The wound was packed because of bleeding with dry 4 x 4 gauzes. The patient is to be admitted for observation and intravenous antibiotics and IV hydration and should be able to be discharged tomorrow myself or Dr. Galeano will follow him up in the office in the middle of next week and we will give him all those instructions. Gino Villalobos MD JTT/sv , 10:54 PM , 11:00 PM
[2018-04-30] MEDS ORDERED: Vancomycin Inj 1,500 MG in Sodium Chlor 0.9% Inj 500 ML IV.SIG SCH ×2
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
[2018-04-30] MEDS: Sod Chloride 0.9% Inj 1,000 ML IV.CONT SCH ×2 (02:04→08:16)
[2018-04-30] MEDS: Piperacil/Tazo 4.5 GM Premix 4.5 GM/100 ML BAG IV.SIG SCH ×2 (05:24→10:29)
[2018-04-30] MEDS ORDERED: Piperacil/Tazo 3.375 GM Premix 50 ML IV.SIG SCH (06:00)
[2018-04-30 07:57] LABS: Baso # (Auto) 0.1 th/mm3 (0.0-0.2); Baso % (Auto) 0.7 % (0.0-2.0); Eos # (Auto) 0.5 th/mm3 (0.0-0.4); Eos % (Auto) 3.5 % (0.0-4.0); Hematocrit 39.1 % (39.0-51.0); Hemoglobin 13.2 gm/dL (13.0-17.0); Lymph # (Auto) 3.4 th/mm3 (1.0-4.8); Mean Corpuscular HGB Conc 33.7 % (32.0-36.0); Mean Corpuscular Hemoglobin 30.7 pg (27.0-34.0); Mean Corpuscular Volume 90.9 fL (80.0-100.0); Mean Platelet Volume 8.3 fL (7.0-11.0); Mono # (Auto) 1.4 th/mm3 (0.0-0.9); Mono % (Auto) 10.7 % (0.0-8.0); Neut # (Auto) 7.7 th/mm3 (1.8-7.7); Neut % (Auto) 59.1 % (16.0-70.0); Platelet Count 291 th/mm3 (150-450); Red Cell Distribution Width 13.1 % (11.6-17.2); White Blood Count 13.1 th/mm3 (4.0-11.0)
[2018-04-30 08:29] LABS: Alanine Aminotransferase 25 U/L (12-78); Albumin 2.6 g/dL (3.4-5.0); Alkaline Phosphatase 114 U/L (45-117); Anion Gap 6 meq/L (5-15); Aspartate Aminotransferase 11 U/L (15-37); Blood Urea Nitrogen 11 mg/dL (7-18); Calcium 7.3 mg/dL (8.5-10.1); Carbon Dioxide 25.4 meq/L (21.0-32.0); Chloride 114 meq/L (98-107); Glomerular Filtration Rate Greater Than 89 mL/min (>89); Glucose,Random 98 mg/dL (74-106); Potassium 3.3 meq/L (3.5-5.1); Sodium 145 meq/L (136-145); Total Protein 5.9 g/dL (6.4-8.2)
--- NOTE | 2018-04-30 08:36 | P.PNCS ---
Subjective Colorectal Surgery Post Op Day #: 1 Interval history: Pt awake,alert afebrile. Father at bedside Objective Result Diagrams: 04/30/18 07:28 04/29/18 21:30 Objective Remarks: Wound unpacked. Clean. Some bleeding. Repacked gently for bleeding. No necrosis or Fourniers. Assessment and Plan - Plan Stable;labs all returning to normal Recommend D/C today on Cipro for 5 days Instructed to call our office in AM for appointment with Dr Galeano. Needs supplies for dressings Care instructions given
[2018-04-30] MEDS ORDERED: Senna/Docusate Sodium 8.6/50 MG Tablet PO SCH (09:00)
--- NOTE | 2018-04-30 09:51 | ECG ---
Date Performed: 04/29/2018 Time Performed: 21:09:14 PTAGE: 33 years EKG: SINUS TACHYCARDIA INDETERMINATE AXIS INCOMPLETE RIGHT BUNDLE BRANCH BLOCK PROBABLE INFERIOR MYOCARDIAL INFARCTION ABNORMAL ECG NO PREVIOUS TRACING DOCTOR: Aneudy Pearl Interpretating Date/Time 04/30/2018 09:50:41
[2018-05-01] MEDS ORDERED: Pharmacy Ordered Lab Info OTHER ONE (11:45)
== END 2018-04-30 14:38 | disposition home or self-care (01) ==
LOC: NEPD 19:21 → NEDA 22:55 → INTOOBSV 22:55 → N05 04-30 01:00
PROVIDERS: ADMIT Hospitalist; ATTEND Hospitalist